=== PATIENT | female | born 1960 | race Caucasian/White ===

== ENCOUNTER 2017-03-23 14:50 | Emergency (ER) | payer OTHER ==
[~2017-03-23] VITALS: Ht 165.1 cm; Wt 77.3 kg
[~2017-03-23 14:50] MED LIST: ACYC5CRE2 TP; ACYC800T7 PO; CA C1TAB86 PO; CLEOCIN; EPIN0.3P2 IJ; ESTR1PAT13 TD; ETOD400T PO; KEN1C EXT; METO25TA6 PO; MULT-1007 PO; SERT20OR6 PO; SIMV20TA4 PO; TRAM50TA2 PO
[2017-03-23] MEDS ORDERED: 0.9% Sodium Chloride 1,000 ML IV ONE (14:51)
[2017-03-23 14:54] VITALS: BP 159/92; PULSE 76; RESP 16; O2SAT 98
[2017-03-23 15:05] LABS: BASOPHILS % (AUTO) 0.8 % (0-3); Mean Corpuscular Volume 89.9 fL (81-100); NEUTROPHILS % (AUTO) 48.7 % (40-74); Platelet Count 197 bil/L (150-400)
--- NOTE | 2017-03-23 15:14 | ED.REPORT ---
HPI-General Illness Date of Service March 23, 2017 ED Provider: David Denise MD Patient is a 56 year old female with a history of migraines and chronic hypertension who presents to the ED via EMS following a hypertensive episode that occurred this afternoon. Patient woke up this morning with a "cluster" migraine and later began to experience lightheadedness, "narrowed" vision and increased work of breathing. Her systolic BP was recorded at Urgent Care in the 200's and she was sent to the ED for further evaluation. EKG at Urgent Care was reassuring. She currently takes amlodipine and metoprolol for her BP. She took Excedrin and tramadol and experienced relief. She denies any vomiting or blurred vision. Nursing Notes Stated Complaint: HIGH BLOOD PRESSURE Chief Complaint: Neuro Symptoms/ Deficits Nursing Notes Reviewed: Yes Allergies: Coded Allergies: Erythromycin Base (Verified Allergy, Intermediate, Rash, 10/15/14) Sulfa (Sulfonamide Antibiotics) (Verified Allergy, Intermediate, 10/15/14) Tetracycline (Verified Allergy, Intermediate, Rash, 10/15/14) Zolpidem (Verified Allergy, Intermediate, Hives, 10/15/14) Scheduled ([Cleocin 1%Solution]) 1 BID APPLY TO SCALP TWICE DAILY UNTIL SCALP CLEAR Estradiol (Vivelle-Dot) 1 Each Patch.tdsw 1 EACH TD 2XWEEK Etodolac (Etodolac) 400 Mg Tablet 400 MG PO BIDWM Metoprolol Tartrate (Metoprolol Tartrate) 25 Mg Tablet 25 MG PO DAILY Sertraline HCl (Sertraline) 20 Mg/1 Ml Oral.conc 50 MG PO DAILY Simvastatin (Simvastatin) 20 Mg Tablet 20 MG PO HS Triamcinolone Acet (Triamcinolone Acetonide Cream) 1 Applic/0.25 Gm Cr 1 APPLIC EXT BID Scheduled PRN Tramadol (Tramadol) 50 Mg Tablet 50 MG PO Q6 PRN PRN For Pain Miscellaneous Medications Acyclovir (Zovirax) 800 Mg Tablet 800 MG PO Acyclovir (Zovirax) 5 Gm Cream..g. 5 GM TP Ca Carb & Gluc/Mag Ox & Gluc (Calcium Magnesium Caplet) 1 Each Tablet 1 EACH PO Epinephrine (Epipen 2-Feliciano) 0.3 Mg/0.3 Ml Auto.injct 0.3 MG IJ Multivitamin (Multi-Vitamin Daily) 1 Each Tablet 1 EACH PO General Time Seen by MD: 15:03 Chief Complaint Other (Hypertension ) Hx Obtained From: Patient Arrived By: Ambulance Sudden in Onset?: No Onset Occurred: 1 - 4 hours ago Symptom Duration: Since onset Location: No: Chest Associated with: Reports: Dizziness, Shortness of breath Pertinent Negative: Pt denies other symptoms Recent Healthcare: No recent doctor visit, No recent hospitalization Past Medical History Past Medical History Notes: PCP: Dr. Lisbet Pickard Past Medical History Hypertension Migraines Pelvic Adhesions Past Surgical History Knee Surgery Family History Mother - previous PE Angina Smoking History Former Smoker Social History Other Social History: Good social support, Local resident Ambulatory Status Independent Review of Systems Hypertension Full Review of Systems Eyes: Denies: Blurred bilateral Respiratory: Reports: Shortness of breath (increased work of breathing ) Cardiovascular: Denies: Chest pain GI: Denies: Nausea, Vomiting Neurologic: Reports: Headache, Vision change (Visual "narrowing"), Denies: Change LOC Complete sys rev & neg: except as marked. Physical Exam Vital Signs Vital Signs Date Time Temp Pulse Resp B/P Pulse Ox O2 Delivery O2 Flow Rate FiO2 03/23/17 17:39 77 20 142/63 95 Room Air 03/23/17 16:00 80 20 158/83 98 Room Air 03/23/17 14:54 36.8 76 16 159/92 98 Room Air Initial VS: Reviewed Neck: Supple, Non-tender, Full range of motion Extremities: Vascular intact, Neuro intact, No swelling (No calf swelling ) , No tenderness (No calf tenderness) Skin: Warm, Dry, No cyanosis Neurologic: Alert, Oriented, Nonfocal Psychiatric: Mood/affect normal, Behavior normal, Normal thought content General/Constitutional: Awake, Alert, No acute distress Head / Eyes: Atraumatic, Normocephalic, PERRL Conjunctiva / Sclera: Positive: Subconj hemorrhage left Respiratory / Chest: Atraumatic, Breath sounds NL, Breath sounds = bilat, No respiratory distress Cardiovascular: Heart rate NL, Regular rhythm, Heart sounds NL, No gallop, No murmurs, No rubs, Peripheral circulation NL, Pulses = bilaterally Abdomen: Atraumatic, Soft, Non-tender, BS normoactive, No distention Interpretation & Diagnostics Lab Results Interpretation Result Diagram: 03/23/17 1502 03/23/17 1502 Test 5/18/17 15:02 03/23/17 16:07 White Blood Count 6.1th/mm3 (3.8-10.1) Red Blood Count 4.94mil/mm3 (3.90-5.20) Hemoglobin 15.8g/dL (12.0-15.6) Hematocrit 44.4% (35.0-46.0) Mean Corpuscular Volume 89.9fL (81-100) Mean Corpuscular Hemoglobin 32.0pg (27.0-35.0) Mean Corpuscular Hemoglobin Concent 35.6% (32.0-37.0) Red Cell Distribution Width 12.3% (12.3-15.4) Platelet Count 197bil/L (150-400) Neutrophils (%) (Auto) 48.7% (40-74) Lymphocytes (%) (Auto) 38.2% (14-46) Monocytes (%) (Auto) 9.0% (4-12) Eosinophils (%) (Auto) 3.0% (0-5) Basophils (%) (Auto) 0.8% (0-3) Sodium Level 139mEq/L (134-144) Potassium Level 3.4mEq/L (3.5-5.2) Chloride Level 97mEq/L (97-108) Carbon Dioxide Level 26mmol/L (18-29) Blood Urea Nitrogen 13mg/dL (6-24) Creatinine 0.82mg/dL (0.57-1.00) Estimat Glomerular Filtration Rate 103mL/min (>59) Glucose Level 124mg/dL (60-99) Calcium Level 9.8mg/dL (8.5-10.1) Magnesium Level 2.0mg/dL (1.6-2.6) Total Bilirubin 0.4mg/dL (0.0-1.2) Aspartate Amino Transf (AST/SGOT) 40U/L (0-50) Alanine Aminotransferase (ALT/SGPT) 42U/L (0-32) Alkaline Phosphatase 79U/L (25-150) Troponin T < 0.010ug/L (0.0-0.011) Total Protein 7.8g/dL (6.4-8.4) Albumin 4.6g/dL (3.4-5.0) Hold Urine Received (Received) Point of Care Testing: Troponin normal ECG Interpretation ECG Interpretation: Normal sinus rhythm bpm 73 Normal axis Normal interval No ST changes No T wave abnormalities No prior for comparison Time: 15:53 Interpreted by: ED physician X-Ray Chest Interpretation Chest Xray Interpretation: IMPRESSION: Negative chest. No acute cardiopulmonary process is evident. Dictated by: Elliot Stanley M.D. on 03/23/2017 at 14:45 Interpretation / Wet Read by: Interpret - Radiologist Re-Eval/Medical Decision Med Decision/Clinical Course Patient is a 56 year old female with a history of migraines and chronic hypertension who presents to the ED via EMS following a hypertensive episode that occurred this afternoon. Patient woke up this morning with a "cluster" migraine and later began to experience lightheadedness, "narrowed" vision and rapid breathing. Her systolic BP was recorded at Urgent Care in the 200's and she was sent to the ED for further evaluation. EKG at Urgent Care was reassuring. She currently takes amlodipine and metoprolol for her BP. She took Excedrin and tramadol and experienced relief. She denies any vomiting or blurred vision. Here in the emergency department the patient is afebrile with stable vital signs , her blood pressure is mildly elevated in the 140s to 150s systolic. Her neurologic examination is unremarkable. EKG Normal sinus rhythm bpm 73 Normal axis Normal interval No ST changes No T wave abnormalities No prior for comparison LABS CBC unremarkable CMP unremarkable except mild hypokalemia K+ 3.5 and mild elevated ALT 32 Troponin negative Chest X-ray IMPRESSION: Negative chest. No acute cardiopulmonary process is evident. Overall presentation likely multifactorial. She had one of her typical headaches though this seemed to result in some symptoms suggestive of panic attack with rapid breathing, transient narrowing of her vision and tingling in her fingertips. She seems to have a very high level anxiety and I suspect that this contributed to her hypertensive episode. Here she is not particularly hypertensive and reports that all of her symptoms have completely resolved. Workup as above is reassuring against acute coronary syndrome, arrhythmia. Presentation is not suggestive of pulmonary embolism nor are her risk factors. No evidence of acute coronary syndrome. I feel that the patient is appropriate for discharge home and she would like to department at this time. She will follow up closely with her primary care physician. Prior to discharge follow-up and return precautions were reviewed in detail with the patient who verbalized understanding and agreement with the plan. The patient was discharged in stable condition. Time of Eval: 17:09 Patient Status: Condition improved Re-Evaluation/Progress Note: Patient is rechecked. She is informed of her results and diagnosis. All questions are addressed. She understands and agrees with the intended treatment plan. Counseled Regarding: Diagnosis, Lab results, Need for follow-up, When/why to return to ED Discharge & Departure Primary Impression: Hypertension Hypertension type: unspecified secondary hypertension Qualified Code: I15.9 - Secondary hypertension, unspecified Additional Impressions: Migraine Migraine type: unspecified Status migrainosus presence: without status migrainosus Intractability: not intractable Qualified Code: G43.909 - Migraine, unspecified, not intractable, without status migrainosus Panic attack Anxiety Disposition: Home Discharge Condition All VS Reviewed: Yes Condition: Improved Patient Instructions: Anxiety (ED), Hypertension (ED) Additional Instructions: Thank you for seeking care at the emergency room. It is difficult for us to make definitive diagnoses in the ED but we believe that your symptoms are likely due to your hypertension and migraine. Our primary goal today in the ED was to evaluate you for any life-threatening conditions. Your evaluation including lab work, EKG and chest X-ray are reassuring at this time. Continue to take your medication as directed and continue to update your blood pressure log. You should follow-up with your primary doctor in the next few days for a recheck. You should return to the ED immediately if you develop cough, shortness of breath, blurry vision, headache, chest pain, lightheadedness, weakness, high blood pressure (above upper 200's) or any other concerning signs or symptoms. Thank you for letting us partake in your care today. Referrals: Tavares Leblanc DO (PCP) Dari Pickard MD Attestation Portions of this note were transcribed by Shayla Pacheco. I, Dr. Denise personally performed the history, physical exam and medical decision-making; I reviewed and confirmed the accuracy of the information in the transcribed note. Signed by: Seth Ames, 03/23/17 2149. copies to: Tavares Leblanc DO; Dari Pickard MD, Beck O MD March 23, 2017 15:14 SHAYLA PACHECO March 23, 2017 15:53
[2017-03-23 15:33] LABS: TROPONIN T < 0.010 ug/L (0.0-0.011)
--- NOTE | 2017-03-23 15:47 | DRSVH ---
PROCEDURE: X-RAY CHEST ONE VIEW, PORTABLE ([id number]) INDICATIONS: chest pain TECHNIQUE: One view of the chest was acquired. COMPARISON: None. FINDINGS: Surgical changes and devices: None. Lungs and pleura: No pleural effusions or pneumothorax. Lungs are clear. Mediastinum: Mediastinal contours appear normal. Heart size is normal. There is mild aortic athero sclerosis. Bones and chest wall: No suspicious bony lesions. Degenerative changes of the bilateral shoulders a re noted. Overlying soft tissues appear unremarkable. IMPRESSION: Negative chest. No acute cardiopulmonary process is evident. Dictated by: Elliot Stanley M.D. on 03/23/2017 at 14:45 Approved by: Elliot Stanley M.D. on 03/23/2017 at 14:46
[2017-03-23 16:00] VITALS: BP 158/83; PULSE 80; RESP 20; O2SAT 98
[2017-03-23 17:39] VITALS: BP 142/63; PULSE 77; RESP 20; O2SAT 95
== END 2017-03-23 17:49 | disposition home or self-care (01) ==
LOC: EDBD 14:50 → SED 14:50
DX: I15.9 Secondary hypertension, unspecified (principal); G43.909 Migraine, unspecified, not intractable, without status migrainosus; F41.0 Panic disorder [episodic paroxysmal anxiety]; Z87.891 Personal history of nicotine dependence; Z88.8 Allergy status to other drugs, medicaments and biological substances; Z88.2 Allergy status to sulfonamides
CPT/HCPCS: 36415; 71010; 80053; 83735; 84484; 85025; 93005; 96360; 99285; J7030